=== PATIENT | male | born 2000 | race African-American/Black ===

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

== ENCOUNTER 2021-03-03 22:51 | Emergency (ER) | payer BC ==
[2021-03-03] MEDS ORDERED: ALBUTEROL SO4 2.5/IPRATROPIUM 0.5 INH SOL 3 ML VIAL.NEB. NEB ONE ×2 (23:00→23:10)
[2021-03-03] MEDS ORDERED: ONDANSETRON 4 MG/2 ML VIAL ONE (23:05)
[2021-03-03] MEDS ORDERED: ONDANSETRON 4 MG/2 ML VIAL IVPUSH ONE (23:08)
[2021-03-03] MEDS ORDERED: LACTATED RINGERS SOLUTION 1000 ML INFUS.BAG IV ONE (23:08)
[2021-03-03 23:20] VITALS: TEMP 97.6; BMI 23.5
[2021-03-03 23:25] LABS: BASO % 0.9 % (0-2.0); EOS % 1.3 % (0-4.5); HEMATOCRIT 40.4 % (35.4-49); HEMOGLOBIN 14.2 GM/dL (11.7-16.9); LYMPH % 25.2 % (8-40); MCH 29.4 pg (25.7-33.7); MCHC 35.1 g/dl (32.0-35.9); MEAN CELL VOLUME 83.9 fl (80-96); MEAN PLT VOLUME 9.6 fl (7.5-11.1); MONO % 11.3 % (3.8-10.2); NEUT % 61.3 % (42.8-82.8); PLATELET COUNT 124 10^3/uL (134-434); RBC 4.81 M/mm3 (4.00-5.60); RDW 14.3 % (11.9-15.9); WHITE BLOOD COUNT 8.4 K/mm3 (4.0-10.0)
[2021-03-03 23:58] LABS: ALBUMIN 4.5 g/dl (3.4-5.0); CALCIUM 9.2 mg/dL (8.5-10.1)
[2021-03-03 23:59] LABS: BLOOD UREA NITROGEN 10.3 mg/dL (7-18)
[2021-03-04 00:01] LABS: CREATININE 0.9 mg/dL (0.55-1.3)
[2021-03-04 00:03] LABS: BILIRUBIN,TOTAL 0.5 mg/dL (0.2-1)
[2021-03-04 02:25] LABS: COCAINE, UR NEGATIVE (NEGATIVE); METHADONE, UR NEGATIVE (NEGATIVE); OPIATES, URI NEGATIVE (NEGATIVE); PHENCYCLIDINE,URINE NEGATIVE (NEGATIVE); URINE AMPHETAMINES NEGATIVE (NEGATIVE); URINE BARBITURATES NEGATIVE (NEGATIVE); URINE BENZODIAZEPINES NEGATIVE (NEGATIVE)
[2021-03-04 03:58] VITALS: BP 126/67; PULSE 68
== END 2021-03-04 05:09 | disposition home or self-care (01) ==
LOC: JER 22:51
PROC: 3E0F7GC Introduction of Other Therapeutic Substance into Respiratory Tract, Via Natural or Artificial Opening (ICD-10-PCS; principal; 2021-03-03)
PROC: 3E033GC Introduction of Other Therapeutic Substance into Peripheral Vein, Percutaneous Approach (ICD-10-PCS; 2021-03-03)
DX: F19.929 Other psychoactive substance use, unspecified with intoxication, unspecified (principal)
CPT/HCPCS: 36415; 80053; 80307; 85025; 99284-25

== ENCOUNTER 2021-10-01 10:32 | Emergency (ER) | payer BC ==
[2021-10-01 11:06] VITALS: BP 127/76; PULSE 86; RESP 17; TEMP 100.4; BMI 19.0
[2021-10-01] MEDS ORDERED: DEXAMETHASONE SOD PHOSPHATE 10 MG/1 ML VIAL IVPUSH ONE (12:26)
[2021-10-01] MEDS ORDERED: SODIUM CHLORIDE 0.9% 500 ML INFUS.BAG IV ONE (12:26)
[2021-10-01] MEDS ORDERED: ACETAMINOPHEN 1000 MG/100 ML BAG IVPB ONE (12:26)
[2021-10-01] MEDS ORDERED: ACETAMINOPHEN INJECTION 100 ML IVPB ONE (12:36)
[2021-10-01] MEDS ORDERED: DEXAMETHASONE SOD PHOSPHATE 10 MG/1 ML VIAL ONE (12:36)
== END 2021-10-01 15:43 | disposition home or self-care (01) ==
LOC: JER 10:32
PROC: 3E033NZ Introduction of Analgesics, Hypnotics, Sedatives into Peripheral Vein, Percutaneous Approach (ICD-10-PCS; principal; 2021-10-01)
PROC: 3E033GC Introduction of Other Therapeutic Substance into Peripheral Vein, Percutaneous Approach (ICD-10-PCS; 2021-10-01)
DX: U07.1 COVID-19 (principal)
CPT/HCPCS: 0241U-QW; 99284-25; J1100

== ENCOUNTER 2021-12-02 00:58 | Observation (INO) | payer BC ==
[2021-12-02] MEDS ORDERED: MIDAZOLAM HCL 2 MG/2 ML SINGLE DOSE VIAL ONE ×2 (01:06→20:05)
[2021-12-02] MEDS ORDERED: diazePAM CARPU-JECT 10 MG/2 ML DISP.SYRIN ONE (01:09)
[2021-12-02] MEDS ORDERED: MIDAZOLAM HCL 5 MG/1 ML Single Dose Vial ONE (01:11)
[2021-12-02] MEDS ORDERED: DEXTROSE 5%-NORMAL SALINE 1,000 ML IV ONE (01:28)
[2021-12-02 01:44] VITALS: BMI 22.1
[2021-12-02 01:48] LABS: BASO % 0.9 % (0-2.0); EOS % 1.4 % (0-4.5); HEMATOCRIT 41.6 % (35.4-49); LYMPH % 41.6 % (8-40); MCH 28.8 pg (25.7-33.7); MCHC 33.6 g/dl (32.0-35.9); MEAN CELL VOLUME 85.6 fl (80-96); MEAN PLT VOLUME 9.4 fl (7.5-11.1); MONO % 15.6 % (3.8-10.2); NEUT % 40.5 % (42.8-82.8); PLATELET COUNT 157 10^3/uL (134-434); RBC 4.85 M/mm3 (4.00-5.60); RDW 15.1 % (11.9-15.9); WHITE BLOOD COUNT 10.1 K/mm3 (4.0-10.0)
[2021-12-02 02:06] LABS: CHLORIDE 113 mmol/L (98-107); SODIUM 146 mmol/L (136-145)
[2021-12-02] MEDS ORDERED: MIDAZOLAM HCL 2 MG/2 ML SINGLE DOSE VIAL IM ONE ×2 (02:06)
[2021-12-02] MEDS ORDERED: diazePAM CARPU-JECT 10 MG/2 ML DISP.SYRIN IM ONE (02:06)
[2021-12-02 02:09] LABS: ALBUMIN 3.9 g/dl (3.4-5.0); BLOOD UREA NITROGEN 10.5 mg/dL (7-18); CO2 15 mmol/L (21-32); GLUCOSE,RANDOM 120 mg/dL (74-106); LIPASE 55 U/L (73-393)
[2021-12-02 02:11] LABS: CREATININE 0.8 mg/dL (0.55-1.3); INR 1.17 (0.83-1.09); PROTHROMBIN TIME (PATIENT) 13.5 SEC (9.7-13.0); SGPT/ALT 23 U/L (13-61)
[2021-12-02 02:12] LABS: SGOT/AST 26 U/L (15-37)
[2021-12-02 02:13] LABS: BILIRUBIN,TOTAL 0.7 mg/dL (0.2-1)
[2021-12-02 02:14] LABS: ALK PHOS 64 U/L (45-117)
[2021-12-02 02:15] LABS: ANION GAP 18 MMOL/L (8-16); LACTIC ACID 12.2 mmol/L (0.4-2.0)
[2021-12-02 02:20] LABS: OPIATES, URI NEGATIVE (NEGATIVE); URINE AMPHETAMINES NEGATIVE (NEGATIVE)
[2021-12-02 02:21] LABS: COCAINE, UR NEGATIVE (NEGATIVE); METHADONE, UR NEGATIVE (NEGATIVE); PHENCYCLIDINE,URINE NEGATIVE (NEGATIVE)
[2021-12-02 02:26] LABS: URINE BARBITURATES NEGATIVE (NEGATIVE); URINE BENZODIAZEPINES POSITIVE (NEGATIVE)
[2021-12-02] MEDS ORDERED: POTASSIUM CHLORIDE 20 MEQ PREMIX IVPB 100 ML IVPB ONE (02:47)
[2021-12-02] MEDS ORDERED: SODIUM CHLORIDE 0.9% 500 ML INFUS.BAG IV ONE (02:47)
[2021-12-02] MEDS ORDERED: SODIUM CHLORIDE 1,000 ML IV SCH (04:00)
[2021-12-02] MEDS: KCL 10 MEQ IVPB 10 MEQ/100 ML INFUS.BAG IVPB SCH ×3 (04:00→11:30)
[2021-12-02] MEDS ORDERED: MIDAZOLAM HCL 2 MG/2 ML SINGLE DOSE VIAL IVPUSH PRN (04:02)
[2021-12-02] MEDS ORDERED: KCL 10 MEQ IVPB 10 MEQ/100 ML INFUS.BAG IVPB ONE ×2 (05:17→11:36)
[2021-12-02] MEDS ORDERED: MAGNESIUM SULF 50% (8.12 MEQ/2 ML-1 GM VIAL) IVPB ONE (05:45)
[2021-12-02] MEDS ORDERED: MAGNESIUM SULFATE IN WATER 2 GM/50 ML IVPB IVPB ONE (06:39)
[2021-12-02 07:31] LABS: ALBUMIN 3.9 g/dl (3.4-5.0); BLOOD UREA NITROGEN 9.8 mg/dL (7-18); CALCIUM 8.1 mg/dL (8.5-10.1)
[2021-12-02 07:34] LABS: PHOSPHOROUS 3.8 mg/dL (2.5-4.9)
[2021-12-02 07:35] LABS: CREATININE 0.6 mg/dL (0.55-1.3)
[2021-12-02 07:36] LABS: BILIRUBIN,TOTAL 1.4 mg/dL (0.2-1); TOT PROT 7.1 g/dl (6.4-8.2)
[2021-12-02 08:15] LABS: LACTIC ACID 2.4 mmol/L (0.4-2.0)
[2021-12-02 09:08] LABS: HEMATOCRIT 36.2 % (35.4-49); HEMOGLOBIN 12.3 GM/dL (11.7-16.9); MCH 29.1 pg (25.7-33.7); MCHC 33.9 g/dl (32.0-35.9); MEAN CELL VOLUME 85.9 fl (80-96); MEAN PLT VOLUME 9.6 fl (7.5-11.1); PLATELET COUNT 109 10^3/uL (134-434); RBC 4.21 M/mm3 (4.00-5.60); RDW 14.4 % (11.9-15.9)
[2021-12-02] MEDS ORDERED: LORazepam 2 MG/ML SDV VIAL IVPUSH ONE ×2 (09:34→09:37)
[2021-12-02] MEDS ORDERED: LORazepam 2 MG/ML SDV VIAL IM ONE (09:39)
[2021-12-02] MEDS ORDERED: HEPARIN NA (PORCINE) 5,000 UNITS/ML 1ML VIAL ONE (11:36)
[2021-12-02] MEDS: HEPARIN NA (PORCINE) 5,000 UNITS/ML 1ML VIAL SQ SCH ×2 (11:36→22:24)
[2021-12-02] MEDS ORDERED: FOLIC ACID INJECTION - 1 MG, THIAMINE HCL 100 MG, MULTIVIT INJECTION ADULT 10 ML in SOD... IVPB ONE (14:00)
[2021-12-02 17:07] VITALS: BP 96/67; PULSE 84; RESP 20; TEMP 98.4
[2021-12-02] MEDS ORDERED: IBUPROFEN 400 MG TABLET (FP) PO ONE ×2 (17:36→17:41)
== END 2021-12-02 23:21 | disposition left against medical advice (07) ==
LOC: JER 00:58 → INTOOBSV 02:46 → JERBED 02:46
PROVIDERS: ADMIT Internal Medicine; ATTEND Internal Medicine
PROC: 3E033GC Introduction of Other Therapeutic Substance into Peripheral Vein, Percutaneous Approach (ICD-10-PCS; principal; 2021-12-02)
DX: F19.10 Other psychoactive substance abuse, uncomplicated (principal)
CPT/HCPCS: 36415; 70450-TC; 71045-TC-FY; 73030-TC-RT-FY; 80053; 80307; 82550; 82553; 82962; 83605; 83690; 83735; 84100; 84443; 84484; 85025; 85027; 85610; 86850; 86900; 86901; 93005; 93010; 99285-25; C9803-CS; G0378; J1644; U0003; U0005

== ENCOUNTER 2021-12-04 00:31 | Emergency (ER) | payer BC ==
[2021-12-04 00:50] VITALS: BP 140/68; PULSE 79; RESP 18; TEMP 98.1; BMI 22.9
== END 2021-12-04 01:49 | disposition home or self-care (01) ==
LOC: JER 00:31
DX: R53.81 Other malaise (principal)
CPT/HCPCS: 99281-25

== ENCOUNTER 2021-12-21 15:14 | Emergency (ER) | payer BC ==
[2021-12-21 15:32] VITALS: RESP 20; BMI 22.7
[2021-12-21] MEDS ORDERED: LORazepam 2 MG/ML SDV VIAL IVPUSH ONE (15:32)
[2021-12-21] MEDS ORDERED: SODIUM CHLORIDE 0.9% 500 ML INFUS.BAG IV ONE (15:53)
[2021-12-21 16:38] LABS: BASO % 1.2 % (0-2.0); EOS % 1.5 % (0-4.5); HEMATOCRIT 36.7 % (35.4-49); HEMOGLOBIN 12.9 GM/dL (11.7-16.9); LYMPH % 30.6 % (8-40); MCH 29.8 pg (25.7-33.7); MCHC 35.1 g/dl (32.0-35.9); MEAN CELL VOLUME 84.8 fl (80-96); MEAN PLT VOLUME 9.4 fl (7.5-11.1); MONO % 11.1 % (3.8-10.2); NEUT % 55.6 % (42.8-82.8); PLATELET COUNT 121 10^3/uL (134-434); RBC 4.33 M/mm3 (4.00-5.60); RDW 14.9 % (11.9-15.9); WHITE BLOOD COUNT 5.3 K/mm3 (4.0-10.0)
[2021-12-21 16:51] LABS: CALCIUM 9.5 mg/dL (8.5-10.1)
[2021-12-21 16:52] LABS: ALBUMIN 4.2 g/dl (3.4-5.0); BLOOD UREA NITROGEN 4.9 mg/dL (7-18)
[2021-12-21 16:55] LABS: CREATININE 0.7 mg/dL (0.55-1.3)
[2021-12-21 16:57] LABS: BILIRUBIN,TOTAL 0.5 mg/dL (0.2-1); TOT PROT 7.5 g/dl (6.4-8.2)
[2021-12-21 19:14] VITALS: BP 118/64; PULSE 75
== END 2021-12-21 20:32 | disposition left against medical advice (07) ==
LOC: JER 15:14
PROC: 3E033NZ Introduction of Analgesics, Hypnotics, Sedatives into Peripheral Vein, Percutaneous Approach (ICD-10-PCS; principal; 2021-12-21)
DX: G40.89 Other seizures (principal)
CPT/HCPCS: 0241U-QW; 80053; 82962; 83605; 85025; 93005; 93010; 99284-25